=== PATIENT | female | born 1960 | race Caucasian/White ===

== ENCOUNTER → 2017-03-26 | Outpatient (CLI) | payer BC ==
[~2017-03-26] MED LIST: HYZAAR 50-12.1 UDTAB PO; PRILOTC PO; TOPROL XL100 MG PO
== END ==
LOC: MC.RAD 10:00
DX: Z12.31 Encounter for screening mammogram for malignant neoplasm of breast (principal)

== ENCOUNTER → 2018-05-06 | Outpatient (CLI) | payer BC | LOC: MC.RAD 10:40 | DX: Z12.31 Encounter for screening mammogram for malignant neoplasm of breast (principal) ==

== ENCOUNTER → 2019-03-17 | Outpatient (CLI) | payer BC | LOC: COL.RAD 08:31 | DX: R19.5 Other fecal abnormalities (principal) ==

== ENCOUNTER 2019-04-28 09:01 | Day surgery (SDC) | payer BC ==
[~2019-04-28] VITALS: Ht 160 cm; Wt 106.8 kg
[2019-04-28 09:48] VITALS: BP 136/75; PULSE 74; TEMP 98.2
[2019-04-28] MEDS ORDERED: HYZAAR 12.5 MG-1 TAB PO (09:48)
[2019-04-28 11:45] VITALS: BP 129/69; PULSE 68
--- NOTE | 2019-04-28 11:45 | NUR ---
Patient returns to room 1 per cart and is awake and alert. Transfers from cart to recliner with one person assist. Temp 97.9 and room air sats 98%. Taking sips of water. Denies nausea or pain. IV fluids infusing and spouse in room.
[2019-04-28 12:00] VITALS: BP 112/66; PULSE 61
--- NOTE | 2019-04-28 12:00 | NUR ---
Room air sats 95%. Resting with eyes closed.
[2019-04-28 12:15] VITALS: BP 136/75; PULSE 74
--- NOTE | 2019-04-28 12:15 | NUR ---
Continues to sip on water and denies nausea or difficulty swallowing.
--- NOTE | 2019-04-28 12:20 | NUR ---
Dr. Morales here and talks with the patient. All questions answered. Spouse in room and also verbalizes understanding.
--- NOTE | 2019-04-28 12:35 | NUR ---
Given dismissal instructions and voices undestanding of home cares and follow up as needed. Patient dismissed to home per private vehicle driven by spouse and taken to the front door per wheelchair by RN and assisted into car with instructions in hand.
== END 2019-04-28 12:35 | disposition home or self-care (01) ==
LOC: SDCO 09:01
DX: Z12.11 Encounter for screening for malignant neoplasm of colon (principal); K21.0 Gastro-esophageal reflux disease with esophagitis; K44.9 Diaphragmatic hernia without obstruction or gangrene; I10 Essential (primary) hypertension; K58.1 Irritable bowel syndrome with constipation; Z86.010 Personal history of colon polyps; K57.30 Diverticulosis of large intestine without perforation or abscess without bleeding; K64.4 Residual hemorrhoidal skin tags
CPT/HCPCS: J2250; J2405; J3010; J7030

== ENCOUNTER → 2019-05-12 | Outpatient (CLI) | payer BC ==
[~2019-05-12] MED LIST changes: +HYZAAR 12.5 MG-1 TAB PO
== END ==
LOC: MC.RAD 10:00
DX: Z12.31 Encounter for screening mammogram for malignant neoplasm of breast (principal)

== ENCOUNTER → 2020-05-23 | Outpatient (CLI) | payer BC | LOC: MC.RAD 10:05 | DX: Z12.31 Encounter for screening mammogram for malignant neoplasm of breast (principal) ==

== ENCOUNTER → 2021-06-20 | Outpatient (CLI) | payer BC | LOC: MC.RAD 09:09 | DX: Z12.31 Encounter for screening mammogram for malignant neoplasm of breast (principal) ==

== ENCOUNTER 2024-05-12 10:24 | Day surgery (SDC) | payer BC, OTHER ==
[~2024-05-12] VITALS: Ht 160 cm; Wt 108.0 kg
[~2024-05-12 10:24] MED LIST changes: +LR 1,000 ML IV SCH; +Ondansetron 4 MG/2 ML VIAL IV PRN
[2024-05-12] MEDS ORDERED: HYZAAR 25 MG-101 TAB PO (11:29)
[2024-05-12] MEDS ORDERED: NORVASC 5MG5 MG/TAB PO (11:30)
[2024-05-12] MEDS ORDERED: Lidocaine PF 2% (20 MG/ML) 5 ML VIAL ONE (13:02)
[2024-05-12] MEDS ORDERED: fentaNYL 50 MCG/ML 2 ML VIAL ONE (13:11)
[2024-05-12 13:35] VITALS: BP 156/93; PULSE 64
--- NOTE | 2024-05-12 13:35 | NUR ---
1335 PT ARIVES TO BAY #6 ON CART. ALERT AND AWAKE. PT TRANSFERS TO BED WITH SBA. DENIES ANY PAIN NAUSEA OR DYSPHASIA. 1337 SNACK GIVEN AND PT TOLERATED THAT WELL. 1345 DR INTO SEE PT ALL QUESTIONS INVITED AND ANSWERED. DC INSTRUCTIONS GIVEN TO PA AND FAMILY MEMBER 1415 PT GETTING DRESSED
[2024-05-12 13:46] VITALS: BP 153/92; PULSE 81
[2024-05-12 14:23] VITALS: BP 143/83; PULSE 77; TEMP 97.4
== END 2024-05-12 14:22 | disposition home or self-care (01) ==
LOC: SDCO 10:24
DX: Z12.11 Encounter for screening for malignant neoplasm of colon (principal); Z86.010 Personal history of colon polyps; D12.8 Benign neoplasm of rectum; K57.30 Diverticulosis of large intestine without perforation or abscess without bleeding
CPT/HCPCS: J2704; J3010; J7120

== ENCOUNTER → 2024-06-02 | Outpatient (CLI) | payer BC ==
[~2024-06-02] MED LIST changes: +HYZAAR 25 MG-101 TAB PO; -LR 1,000 ML IV SCH; +NORVASC 5MG5 MG/TAB PO; -Ondansetron 4 MG/2 ML VIAL IV PRN
== END ==
LOC: MC.RAD 10:29
DX: Z12.31 Encounter for screening mammogram for malignant neoplasm of breast (principal)